=== PATIENT | female | born 1955 ===

== ENCOUNTER 2024-03-30 11:49 | Outpatient (CLI) | payer OTHER ==
[2024-03-30 14:04] LABS: NA URINE 24 HR 100.8 mmol/24h (40-220)
== END 2024-03-30 11:50 | disposition home or self-care (01) ==
LOC: LAB 11:49
PROVIDERS: ATTEND Urology
DX: N20.0 Calculus of kidney (principal)

== ENCOUNTER 2024-11-04 09:35 | Outpatient (CLI) | payer OTHER ==
[2024-11-05 16:04] LABS: Magne u 3.2 mg/dL (Not Estab.); Magnesio 24 98.6 mg/24 hr (12.0-293.0)
== END 2024-11-04 09:42 | disposition home or self-care (01) ==
LOC: LAB 09:35
PROVIDERS: ATTEND Urology
DX: N20.0 Calculus of kidney (principal)